=== PATIENT | female | born 1945 | race Caucasian/White ===

== ENCOUNTER 2021-12-03 06:21 | Day surgery (SDC) | payer MEDICARE, SELFPAY ==
[2021-11-27 14:44] VITALS: BMI 25.0
--- NOTE | 2021-11-29 15:07 | MHC.SHP ---
Pre-Procedural Eval Section A Date of Service: 11/29/21 The patient is an INPATIENT: No Changes since office visit: No Cold of Flu in the past 2 weeks, No New Medical Problems, No Changes in Medication and No Patient answered all questions The History & Physical has been completed within 30 days and I have reviewed it.: Yes Section B Chief Complaint: Age-related nuclear cataract, left eye Allergies: Allergies Allergy/AdvReac Type Severity Reaction Status Date / Time bee pollen [bee stings] Allergy Severe Anaphylaxis Verified 11/27/21 14:42 atorvastatin [From Lipitor] Allergy Intermediate nausea/vomi Verified 11/27/21 14:42 ting/diarrh ea/swelling Penicillins [PENICILLINS] Allergy Intermediate ITCHY,RASH Unverified 11/27/21 14:42 rosuvastatin [From Crestor] Allergy Intermediate myalgia Verified 11/27/21 14:42 ascorbic acid [Vitamin C] AdvReac Intermediate Gastrointestinal Verified 11/27/21 14:42 Upset Plan Diagnosis/Plan: Unchanged I have reviewed the history and physical and performed a pertinent physical examination on my patient. No changes have occurred unless specified.
--- NOTE | 2021-11-30 08:29 | HO.ANESPROP2 ---
Documented by User: Triny Lau NP 11/30/21 08:29 HPI - Anesthesia Eval Consult details Narrative: 76yo F for Left Cataract Extraction IOL Insertion PCP cleared No prev cataract on record PMFSH Past Medical History Medical History (Updated 11/27/21 @ 14:44 by Eufemia Kulkarni RN) Elevated cholesterol GERD (gastroesophageal reflux disease) Hiatal hernia History of COVID-19 HTN (hypertension) Murmur Postoperative nausea Surgical History Surgical History (Updated 11/27/21 @ 14:44 by Eufemia Kulkarni RN) H/O colonoscopy History of pubovaginal sling Social History Social History Are you a primary manager medicare to a significant other at home: No Do you presently have visiting nurse or other home services: No Patient Tobacco Use Status: Never used Tobacco Use of substances other than those prescribed or required for medical reasons: No Have you been hit, kicked, punched, or otherwise hurt by someone within the past year? If so, by whom?: No Are you DNR?: No Advance Directives: No (states is and daughter) Advance Directives Information Provided: Yes [place]as above noted[place] [facility] [place]ives on File: No Recently lost weight without trying: No Eating poorly because of decreased appetite: No Nutrition Risks: Surgical patient >75years Poor oral hygiene: No Meds Allergies Allergy/AdvReac Type Severity Reaction Status Date / Time bee pollen [bee stings] Allergy Severe Anaphylaxis Verified 12/03/21 07:20 atorvastatin [From Lipitor] Allergy Intermediate nausea/vomi Verified 12/03/21 07:20 ting/diarrh ea/swelling Penicillins [PENICILLINS] Allergy Intermediate ITCHY,RASH Verified 12/03/21 07:20 rosuvastatin [From Crestor] Allergy Intermediate myalgia Verified 12/03/21 07:20 ascorbic acid [Vitamin C] AdvReac Intermediate Gastrointestinal Verified 12/03/21 07:20 Upset Home Medications Medication Instructions Recorded Confirmed Last Taken Type diazepam 5 mg tablet 1 tab PO Q12H PRN anxiety 11/27/21 11/27/21 12/03/21 History hydrochlorothiazide 12.5 mg tablet 1 tab PO DAILY 11/27/21 11/27/21 Unknown History lisinopril 20 mg tablet 1 tab PO DAILY 11/27/21 11/27/21 Unknown History omeprazole 20 mg capsule,delayed 1 cap PO DAILY 11/27/21 11/27/21 12/03/21 History release prochlorperazine maleate 10 mg 1 tab PO Q8H PRN nausea 11/27/21 11/27/21 Unknown History tablet simvastatin 40 mg tablet 1 tab PO BEDTIME 11/27/21 11/27/21 Unknown History Exam Exam Date and Time: November 30, 2021 0829 Height,Weight and Vital Signs: Height 5 ft 3.75 in Weight 65.771 kg Assessment and Plan Assessment Anesthesia Assessment: Chart Reviewed Documented by User: Mary Jane Healy MD 12/03/21 07:28 [facility] Past Medical History Medical History (Updated 11/27/21 @ 14:44 by Eufemia Kulkarni RN) Elevated cholesterol GERD (gastroesophageal reflux disease) Hiatal hernia History of COVID-19 HTN (hypertension) Murmur Postoperative nausea Family History Family history of problems with anesthesia: No Surgical History Surgical History (Updated 11/27/21 @ 14:44 by Eufemia Kulkarni RN) H/O colonoscopy History of pubovaginal sling History of Problems with Anesthesia: No Social History Social History Are you a primary manager medicare to a significant other at home: No Do you presently have visiting nurse or other home services: No Patient Tobacco Use Status: Never used Tobacco Use of substances other than those prescribed or required for medical reasons: No Have you been hit, kicked, punched, or otherwise hurt by someone within the past year? If so, by whom?: No Are you DNR?: No Advance Directives: No (states is and daughter) Advance Directives Information Provided: Yes (as above noted[place] [facility] [place] Advance Directives on File: No Recently lost weight without trying: No Eating poorly because of decreased appetite: No Nutrition Risks: Surgical patient >75years Poor oral hygiene: No Meds Allergies Allergy/AdvReac Type Severity Reaction Status Date / Time bee pollen [bee stings] Allergy Severe Anaphylaxis Verified 12/03/21 07:20 atorvastatin [From Lipitor] Allergy Intermediate nausea/vomi Verified 12/03/21 07:20 ting/diarrh ea/swelling Penicillins [PENICILLINS] Allergy Intermediate ITCHY,RASH Verified 12/03/21 07:20 rosuvastatin [From Crestor] Allergy Intermediate myalgia Verified 12/03/21 07:20 ascorbic acid [Vitamin C] AdvReac Intermediate Gastrointestinal Verified 12/03/21 07:20 Upset Home Medications Medication Instructions Recorded Confirmed Last Taken Type diazepam 5 mg tablet 1 tab PO Q12H PRN anxiety 11/27/21 11/27/21 12/03/21 History hydrochlorothiazide 12.5 mg tablet 1 tab PO DAILY 11/27/21 11/27/21 Unknown History lisinopril 20 mg tablet 1 tab PO DAILY 11/27/21 11/27/21 Unknown History omeprazole 20 mg capsule,delayed 1 cap PO DAILY 11/27/21 11/27/21 12/03/21 History release prochlorperazine maleate 10 mg 1 tab PO Q8H PRN nausea 11/27/21 11/27/21 Unknown History tablet simvastatin 40 mg tablet 1 tab PO BEDTIME 11/27/21 11/27/21 Unknown History Exam Airway Mallampati Class: II (Upper cap) TM Dist: >3cm Neck ROM: Full Heart: rrr Lungs: cta Assessment and Plan Assessment Anesthesia Assessment: Anesthesia Plan Discussed Final Anesthetic Review Family History of Problems with Anesthesia: No History of Problems with Anesthesia: No NPO: Yes ASA Class: II Final Preanesthetic Review: No Changes in Pt Med Stat, Meds/Allgs Chart Reviewed and Consent Obtained/Reviewed Patient Risk: Intermediate Procedure Risk: Intermediate Anesthetic Plan Anesthetic Plan: MAC: Disposition: Standard PACU
[2021-12-03] MEDS: Tetracaine HCl/PF 0.5% Oph Sol 4 ML DROPS 1 DROP EYE-LEFT (07:20)
[2021-12-03] MEDS: Cyclopentolate 1 % Ophth Sol 2 ML DRPBTL 1 DROP EYE-LEFT ×3 (07:21→07:44)
[2021-12-03] MEDS: Lactated Ringers 500 ML 50 ML IV (07:21)
[2021-12-03] MEDS: Ketorolac Tromethamine 0.5% Op 5 ML DROPS 1 DROP EYE-LEFT ×3 (07:21→07:49)
[2021-12-03] MEDS: Phenylephrine HCL 2.5% Oph SoL 2 ML BOTTLE 1 DROP EYE-LEFT ×3 (07:21→07:45)
[2021-12-03] MEDS: Tropicamide 1 % Ophth Sol 3 ML BTL 1 DROP EYE-LEFT ×3 (07:22→07:49)
[2021-12-03 07:32] VITALS: BP 138/53; PULSE 61; RESP 18; TEMP 36.4; O2SAT 100
--- NOTE | 2021-12-03 08:18 | HO.PNOPHT ---
Ophthalmology Procedure Procedure Date of Service: 12/03/21 Ophthalmology Viscoelastic: Healjurgen Duet Dual Pack Pro Ophthalmology Lenses: TECIRMA [id number] (30) Procedure Notes: PREOPERATIVE DIAGNOSIS: Decreased visual acuity left eye secondary to cataract POSTOPERATIVE DIAGNOSIS: Same PROCEDURE: Left cataract extraction with intraocular lens insertion SURGEON: Marc Smalls M.D. ANESTHESIA: Topical/MAC ESTIMATED BLOOD LOSS: None COMPLICATIONS: None After obtaining informed consent, the patient was brought to the operation room suite and placed in the supine position. After adequate sedation per anesthesia, topical drops of Tetracaine were given to the left eye. The eye was then prepped and draped in the usual sterile fashion. The operating room microscope was then positioned over the operative eye and a lid speculum placed. A paracentesis was created. Viscoelastic was then instilled into the anterior chamber. A three plane incision was then created temporally, utilizing a 2.85 mm keratome. Capsulotomy forceps were then utilized to create a circular tear capsulotomy. Hydrodissection and hydrodelineation were carried out until adequate mobilization of the nucleus occurred. Phacoemulsification was then utilized to remove the dense central nucleus followed by removal of the cortical material utilizing the automated aspiration irrigation unit. Viscoat elastic was instilled into the posterior capsular bag followed by placement of a posterior chamber intraocular lens without difficulty. The residual Viscoat elastic was then removed utilizing the automated IA machine. The wound was check and found to be watertight. The patient tolerated the procedure well and the lid speculum was removed. Intracameral injection of Vigamox 0.1 mL followed by a subtenon injection of Kenalog-40 0.2 mL were administered. The patient will be seen in the a.m.
[2021-12-03 08:48] VITALS: BP 153/56; PULSE 55; RESP 16; TEMP 36.4; O2SAT 100
== END 2021-12-03 08:58 | disposition home or self-care (01) ==
PROVIDERS: PCP Internal Medicine; Visit Provider Ophthalmology
PROC: (CPT 66985; principal; 2021-12-03 08:20)
DX: H25.12 Age-related nuclear cataract, left eye (principal); H52.4 Presbyopia; H35.443 Age-related reticular degeneration of retina, bilateral; I10 Essential (primary) hypertension; Z79.899 Other long term (current) drug therapy; Z88.0 Allergy status to penicillin; Z88.8 Allergy status to other drugs, medicaments and biological substances; Z86.16 Personal history of COVID-19
CPT/HCPCS: 66984; J2250; J3300; V2632

== ENCOUNTER 2021-12-17 07:34 | Day surgery (SDC) | payer MEDICARE, SELFPAY ==
[2021-11-27 14:48] VITALS: BMI 25.0
--- NOTE | 2021-12-14 13:13 | MHC.SHP ---
Pre-Procedural Eval Section A Date of Service: 12/14/21 The patient is an INPATIENT: No Changes since office visit: No Cold of Flu in the past 2 weeks, No New Medical Problems, No Changes in Medication and No Patient answered all questions The History & Physical has been completed within 30 days and I have reviewed it.: Yes Section B Chief Complaint: Age-related nuclear cataract, right eye Allergies: Allergies Allergy/AdvReac Type Severity Reaction Status Date / Time bee pollen [bee stings] Allergy Severe Anaphylaxis Verified 12/03/21 07:20 atorvastatin [From Lipitor] Allergy Intermediate nausea/vomi Verified 12/03/21 07:20 ting/diarrh ea/swelling Penicillins [PENICILLINS] Allergy Intermediate ITCHY,RASH Verified 12/03/21 07:20 rosuvastatin [From Crestor] Allergy Intermediate myalgia Verified 12/03/21 07:20 ascorbic acid [Vitamin C] AdvReac Intermediate Gastrointestinal Verified 12/03/21 07:20 Upset Plan Diagnosis/Plan: Unchanged I have reviewed the history and physical and performed a pertinent physical examination on my patient. No changes have occurred unless specified.
[2021-12-17 08:46] VITALS: BP 135/37; PULSE 56; RESP 16; TEMP 36.9; O2SAT 100
[2021-12-17] MEDS: Tetracaine HCl/PF 0.5% Oph Sol 4 ML DROPS 1 DROP EYE-RIGHT (08:51)
[2021-12-17] MEDS: Cyclopentolate 1 % Ophth Sol 2 ML DRPBTL 1 DROP EYE-RIGHT ×3 (08:53→09:05)
[2021-12-17] MEDS: Phenylephrine HCL 2.5% Oph SoL 2 ML BOTTLE 1 DROP EYE-RIGHT ×3 (08:53→09:08)
[2021-12-17] MEDS: Tropicamide 1 % Ophth Sol 3 ML BTL 1 DROP EYE-RIGHT ×3 (08:55→09:06)
[2021-12-17] MEDS: Ketorolac Tromethamine 0.5% Op 5 ML DROPS 1 DROP EYE-RIGHT ×3 (08:56→09:07)
--- NOTE | 2021-12-17 09:00 | P.CONAN_ITS ---
Documented by User: Ronald Leon MD 12/17/21 09:22 HPI - Anesthesia Eval Consult details Narrative: Right eye cataract PMFSH Past Medical History Medical History Elevated cholesterol GERD (gastroesophageal reflux disease) Hiatal hernia History of COVID-19 HTN (hypertension) Murmur Postoperative nausea Surgical History Surgical History H/O colonoscopy History of pubovaginal sling Social History Social History Are you a primary home care companion to a significant other at home: No Do you presently have visiting nurse or other home services: No Patient Tobacco Use Status: Never used Tobacco Use of substances other than those prescribed or required for medical reasons: No Have you been hit, kicked, punched, or otherwise hurt by someone within the past year? If so, by whom?: No Are you DNR?: No Advance Directives: No Advance Directives Information Provided: Yes (as above noted but not on file @ [facility] – [place]) Advance Directives on File: No Recently lost weight without trying: No Eating poorly because of decreased appetite: No Nutrition Risks: Surgical patient >75years Poor oral hygiene: No Meds Allergies Allergy/AdvReac Type Severity Reaction Status Date / Time bee pollen [bee stings] Allergy Severe Anaphylaxis Verified 12/03/21 07:20 atorvastatin [From Lipitor] Allergy Intermediate nausea/vomi Verified 12/03/21 07:20 ting/diarrh ea/swelling Penicillins [PENICILLINS] Allergy Intermediate ITCHY,RASH Verified 12/03/21 07:20 rosuvastatin [From Crestor] Allergy Intermediate myalgia Verified 12/03/21 07:20 ascorbic acid [Vitamin C] AdvReac Intermediate Gastrointestinal Verified 12/03/21 07:20 Upset Home Medications Medication Instructions Recorded Confirmed Last Taken Type diazepam 5 mg tablet 1 tab PO Q12H PRN anxiety 11/27/21 11/27/21 12/17/21 History hydrochlorothiazide 12.5 mg tablet 1 tab PO DAILY 11/27/21 11/27/21 Unknown History lisinopril 20 mg tablet 1 tab PO DAILY 11/27/21 11/27/21 Unknown History omeprazole 20 mg capsule,delayed 1 cap PO DAILY 11/27/21 11/27/21 12/17/21 History release prochlorperazine maleate 10 mg 1 tab PO Q8H PRN nausea 11/27/21 11/27/21 Unknown History tablet simvastatin 40 mg tablet 1 tab PO BEDTIME 11/27/21 11/27/21 Unknown History Exam Airway Mallampati Class: II TM Dist: >3cm Neck ROM: Full Loose/Missing/Broken Teeth: Yes (upper cap) Heart: rrr+[id number] Lungs: cta b/l Assessment and Plan Assessment Anesthesia Assessment: Anesthesia Plan Discussed and Chart Reviewed Final Anesthetic Review NPO: Yes ASA Class: III Final Preanesthetic Review: No Changes in Pt Med Stat, Meds/Allgs Chart Reviewed, Consent Obtained/Reviewed and Anes Risks/Benef Reviewed Patient Risk: Intermediate Procedure Risk: Low Assessment/Block/Sedation in SS: Assess/Block/Sedation-SS Anesthetic Plan Anesthetic Plan: MAC: and Agree w/ Assess. and Plan Disposition: Standard PACU Documented by User: Mary Jane Healy MD [facility] Past Medical History Medical History Elevated cholesterol GERD (gastroesophageal reflux disease) Hiatal hernia History of COVID-19 HTN (hypertension) Murmur Postoperative nausea Family History Family history of problems with anesthesia: No Surgical History Surgical History H/O colonoscopy History of pubovaginal sling History of Problems with Anesthesia: No Social History Social History Are you a primary home care companion to a significant other at home: No Do you presently have visiting nurse or other home services: No Patient Tobacco Use Status: Never used Tobacco Use of substances other than those prescribed or required for medical reasons: No Have you been hit, kicked, punched, or otherwise hurt by someone within the past year? If so, by whom?: No Are you DNR?: No Advance Directives: No Advance Directives Information Provided: Yes (as above noted but not on file @ [facility] [place]) Advance Directives on File: No Recently lost weight without trying: No Eating poorly because of decreased appetite: No Nutrition Risks: Surgical patient >75years Poor oral hygiene: No Meds Allergies Allergy/AdvReac Type Severity Reaction Status Date / Time bee pollen [bee stings] Allergy Severe Anaphylaxis Verified 12/03/21 07:20 atorvastatin [From Lipitor] Allergy Intermediate nausea/vomi Verified 12/03/21 07:20 ting/diarrh ea/swelling Penicillins [PENICILLINS] Allergy Intermediate ITCHY,RASH Verified 12/03/21 07:20 rosuvastatin [From Crestor] Allergy Intermediate myalgia Verified 12/03/21 07:20 ascorbic acid [Vitamin C] AdvReac Intermediate Gastrointestinal Verified 12/03/21 07:20 Upset Active Medications: Current Medications Povidone Iodine (Povidone Iodine 5 % Ophth Soln 30 Ml Bottle) 1 appl EYE-RIGHT PREOP PRN PRN Reason: Pre-Op Surgical Implant Prophy Home Medications Medication Instructions Recorded Confirmed Last Taken Type diazepam 5 mg tablet 1 tab PO Q12H PRN anxiety 11/27/21 11/27/21 12/17/21 History hydrochlorothiazide 12.5 mg tablet 1 tab PO DAILY 11/27/21 11/27/21 Unknown History lisinopril 20 mg tablet 1 tab PO DAILY 11/27/21 11/27/21 Unknown History omeprazole 20 mg capsule,delayed 1 cap PO DAILY 11/27/21 11/27/21 12/17/21 History release prochlorperazine maleate 10 mg 1 tab PO Q8H PRN nausea 11/27/21 11/27/21 Unknown History tablet simvastatin 40 mg tablet 1 tab PO BEDTIME 11/27/21 11/27/21 Unknown History Exam Exam Date and Time: December 17, 2021 0900 Height,Weight and Vital Signs: Height 5 ft 3.75 in Weight 65.771 kg Last Vital Signs Temp 98.4 F 12/17/21 08:46 Pulse 56 12/17/21 08:46 Resp 16 12/17/21 08:46 BP 135/37 L 12/17/21 08:46 Pulse Ox 100 12/17/21 08:46 O2 Del Method 12/17/21 08:46 Assessment and Plan Final Anesthetic Review Family History of Problems with Anesthesia: No History of Problems with Anesthesia: No
[2021-12-17] MEDS: Lactated Ringers 500 ML 50 ML IV (09:06)
--- NOTE | 2021-12-17 09:41 | HO.PNOPHT ---
Ophthalmology Procedure Procedure Date of Service: 12/17/21 Ophthalmology Viscoelastic: Tiffany Tracyt Dual Pack Pro Ophthalmology Lenses: TECIRMA [id number] (29) Procedure Notes: PREOPERATIVE DIAGNOSIS: Decreased visual acuity right eye secondary to cataract POSTOPERATIVE DIAGNOSIS: Same PROCEDURE: Right cataract extraction with intraocular lens insertion SURGEON: Marc Smalls M.D. ANESTHESIA: Topical/MAC ESTIMATED BLOOD LOSS: None COMPLICATIONS: None After obtaining informed consent, the patient was brought to the operating room suite and placed in the supine position. After adequate sedation per anesthesia, topical drops of Tetracaine were given to the right eye. The eye was then prepped and draped in the usual sterile fashion. The operating room microscope was then positioned over the operative eye and a lid speculum placed. A paracentesis was created. Viscoelastic was then instilled into the anterior chamber. A three plane incision was then created temporally, utilizing a 2.85 mm keratome. Capsulotomy forceps were then utilized to create a circular tear capsulotomy. Hydrodissection and hydrodelineation were carried out until adequate mobilization of the nucleus occurred. Phacoemulsification was then utilized to remove the dense central nucleus followed by removal of the cortical material utilizing the automated aspiration irrigation unit. Viscoelastic was instilled into the posterior capsular bag followed by placement of a posterior chamber intraocular lens without difficulty. The residual Viscoelastic was then removed utilizing the automated IA machine. The wound was checked and found to be watertight. The patient tolerated the procedure well and the lid speculum was removed. Intracameral injection of Vigamox 0.1 mL followed by a subtenon injection of Kenalog-40 0.2 mL were administered. The patient will be seen in the a.m.
[2021-12-17 10:06] VITALS: BP 155/55; PULSE 53; RESP 13; TEMP 36.9; O2SAT 99
== END 2021-12-17 10:26 | disposition home or self-care (01) ==
PROVIDERS: PCP Internal Medicine; Visit Provider Ophthalmology
PROC: (CPT 66985; principal; 2021-12-17 09:40)
DX: H25.11 Age-related nuclear cataract, right eye (principal); H52.4 Presbyopia; H21.41 Pupillary membranes, right eye; I10 Essential (primary) hypertension; E78.00 Pure hypercholesterolemia, unspecified; Z79.899 Other long term (current) drug therapy; Z88.0 Allergy status to penicillin; Z88.8 Allergy status to other drugs, medicaments and biological substances; Z86.16 Personal history of COVID-19
CPT/HCPCS: 66984; J2250; J3300; V2632

== ENCOUNTER 2024-05-10 11:37 | Outpatient (REF) | payer MEDICARE, SELFPAY ==
[2024-05-10 11:40] VITALS: BP 190/62; PULSE 56; RESP 18; TEMP 36.5; O2SAT 100; BMI 23.3
== END 2024-05-10 11:38 | disposition home or self-care (01) ==
LOC: HO.MS 11:37
PROVIDERS: PCP Internal Medicine; Visit Provider Ophthalmology
PROC: (CPT 66821; principal; 2024-05-10 13:40)
DX: H26.491 Other secondary cataract, right eye (principal)
CPT/HCPCS: 66821